=== PATIENT | male | born 1990 | race Caucasian/White ===

== ENCOUNTER 2017-04-15 17:23 | Emergency (ER) | payer SELFPAY ==
[~2017-04-15] VITALS: Ht 190.5 cm; Wt 89.2 kg
[~2017-04-15 17:23] MED LIST: Z.0.NO CURRENT MEDS
[2017-04-15 17:38] VITALS: BP 140/75; PULSE 81; RESP 18; TEMP 97.7; O2SAT 100
[2017-04-15] MEDS ORDERED: oxyCODONE/ACETAMINOPHEN 5 MG/325 MG TAB PO ONE (18:00)
[2017-04-15] MEDS ORDERED: TETANUS/DIPHTHERIA TOXOID ADULT 0.5 ML VIAL IM ONE (18:00)
--- NOTE | 2017-04-15 18:02 | PD ---
HPI Chief Complaint: Musculoskeletal Complaint Time Seen by Provider: 17:48 Travel History International Travel<30 days: No Contact w/Intl Traveler<30days: No Traveled to known affect area: No History of Present Illness HPI Patient is a 26-year-old male who presents to emergency room after he fell off a ladder today. Reports that after he fell off the ladder, he landed onto his buttochs and right wrist. Patient denies any trauma to his head or neck, denies any loss of consciousness. Patient is not on any anticoagulants. Patient at this time complains of no headache or neck pain, patient with no back pain, patient complains of pains to his right wrist, right elbow, left wrist. Patient reports that his tetanus is not up-to-date. Patient with no chest pain or shortness of breath. Patient with no abdominal pain, nausea or vomiting. PFSH Past Medical History Medical History: Denies Significant Hx Past Surgical History Surgical History: No Previous Surgery Social History Alcohol Use: No Tobacco Use: Yes (09/16 ppd) Substance Use: No Allergies-Medications (Allergen,Severity, Reaction): Coded Allergies: No Known Allergies (Unverified , 04/15/17) Reported Meds & Prescriptions Reported Meds & Active Scripts Active Ibuprofen 600 Mg Tab 600 Mg PO Q6H PRN Percocet (Oxycodone-Acetaminophen) 5-325 mg Tab 1 Tab PO Q6H PRN Review of Systems General / Constitutional: No: Fever Eyes: No: Visual changes HENT: No: Headaches Cardiovascular: No: Chest Pain or Discomfort Respiratory: No: Shortness of Breath Gastrointestinal: No: Abdominal Pain Genitourinary: No: Dysuria Musculoskeletal: Positive: Pain (left wrist, right wrist, right elbow) Skin: No Rash Neurologic: No: Weakness Psychiatric: No: Depression Endocrine: No: Polydipsia Hematologic/Lymphatic: No: Easy Bruising Physical Exam Narrative GENERAL: mild distress SKIN: Focused skin assessment warm/dry. HEAD: Atraumatic. Normocephalic. EYES: Pupils equal and round. No scleral icterus. No injection or drainage. ENT: No nasal bleeding or discharge. Mucous membranes pink and moist. NECK: Trachea midline. No JVD. CARDIOVASCULAR: Regular rate and rhythm. No murmur appreciated. RESPIRATORY: No accessory muscle use. Clear to auscultation. Breath sounds equal bilaterally. GASTROINTESTINAL: Abdomen soft, non-tender, nondistended. Hepatic and splenic margins not palpable. MUSCULOSKELETAL: No obvious deformities. No clubbing. No cyanosis. No edema. Patient with no midline tenderness to cervical, thoracic or lumbar spine LUE: patient with mild pain with ROM to left wrist, no obvious deformities, pulses intact, neurovascular intact, patient with skin tears to his wrist RUE: Patient with mild pain with range of motion of right shoulder, right elbow and right wrist, there are no obvious open deformities, pulses intact, neurovascular intact. Patient with good range of motion to all fingers. NEUROLOGICAL: Awake and alert. No obvious cranial nerve deficits. Motor grossly within normal limits. Normal speech. PSYCHIATRIC: Appropriate mood and affect; insight and judgment normal. Data Data Last Documented VS Vital Signs Date Time Temp Pulse Resp B/P Pulse Ox O2 Delivery O2 Flow Rate FiO2 04/15/17 19:10 66 17 131/65 100 Room Air 04/15/17 17:38 97.7 Orders Oxycodone-Acetamin 5-325 Mg (Percocet (04/15/17 18:00) Wrist, Complete ([id number]) (04/15/17 ) Wrist, Complete ([id number]) (04/15/17 ) Elbow, Complete (4 Vws) (04/15/17 ) Tetanus/Diphtheria Tox Adult (Tetanus/Di (04/15/17 18:00) Shoulder, Complete (>2vws) (04/15/17 ) Splint Or Brace Apply/Monitor (04/15/17 19:30) Splint Or Brace Apply/Monitor (04/15/17 19:42) MDM Medical Decision Making Medical Screen Exam Complete: Yes Emergency Medical Condition: Yes Interpretation(s) Vital Signs Date Time Temp Pulse Resp B/P Pulse Ox O2 Delivery O2 Flow Rate FiO2 04/15/17 17:38 97.7 81 18 140/75 100 Differential Diagnosis Differential includes shoulder fracture, wrist sprain, wrist fracture, elbow fracture/sprain Narrative Course Patient is a 26-year-old male who presents to emergency room with complaints of right shoulder, right elbow and right wrist and left wrist pain after he fell off a ladder. Patient with no trauma to his head or neck, patient with no midline tenderness to his CT, T or L-spine. Patient ambulating in the emergency with normal gait. Plan to obtain x-rays of his right elbow, shoulder , wrists b/l. Patient with no open deformities, no neurovascular compromise Last Impressions Shoulder X-Ray 04/15/17 0000 Signed Impressions: Service Date/Time: Saturday, April 15, 2017 18:22 - CONCLUSION: No evidence of fracture or dislocation. Farzad Banks MD Left wrist: patient with nondisplaced fracture of scaphoid - plan to place patient in thumb spica. Patient also with a mildly indurated fracture of the physis of the radial head. - will place patient in sugar tong and posterior elbow splint Patient will follow up with orthopedic surgery and will return to ER as needed Last Impressions Wrist X-Ray 04/15/17 0000 Signed Impressions: Service Date/Time: Saturday, April 15, 2017 18:38 - CONCLUSION: No evidence of recent bony injury. Farzad Banks MD Wrist X-Ray 04/15/17 0000 Signed Impressions: Service Date/Time: Saturday, April 15, 2017 18:43 - CONCLUSION: Nondisplaced fracture of the scaphoid. Farzad Banks MD Shoulder X-Ray 04/15/17 0000 Signed Impressions: Service Date/Time: Saturday, April 15, 2017 18:22 - CONCLUSION: No evidence of fracture or dislocation. Farzad Banks MD Elbow X-Ray 04/15/17 0000 Signed Impressions: Service Date/Time: Saturday, April 15, 2017 18:46 - CONCLUSION: Radial head fracture. Farzad Banks MD copies of patient studies were given to him at discharge Diagnosis Primary Impression: Scaphoid fracture, wrist, closed Qualified Code: S62.002A - Closed nondisplaced fracture of scaphoid of left wrist, unspecified portion of scaphoid, initial encounter Additional Impression: Radial head fracture, closed Qualified Code: S52.124A - Closed nondisplaced fracture of head of right radius, initial encounter Referrals: Humberto Jason MD Patient Instructions: Narcotic given in the ED, General Instructions Departure Forms: Tests/Procedures, Work Release Enter return to work date: May 06, 2017 Special Instructions: to heavy lifting until cleared by orthopedic surgery Additional Instructions: Please provide patient with a copy of his studies at discharge Please follow up with orthopedic surgery as soon as possible, call first thing in the morning for earliest follow up appointment Please place ice onto wrist and elbow Do not drive or operate heavy machinery while taking narcotic medications Return to ER as needed Med/Other Pt SpecificInfo: Prescription(s) given Scripts Ibuprofen 600 Mg Cad601 Mg PO Q6H PRN (Pain/Inflammation) #40 TAB Ref 0 Prov:Cheryl Cobian DO 04/15/17 Oxycodone-Acetaminophen (Percocet)5-325 mg Tab1 Tab PO Q6H PRN (PAIN) #12 TAB Ref 0 Prov:Cheryl Cobian DO 04/15/17 Disposition: 01 DISCHARGE HOME Condition: Stable Cheryl Cobian DO Apr 15, 2017 18:01
[2017-04-15 19:10] VITALS: BP 131/65; PULSE 66; RESP 17; O2SAT 100
--- NOTE | 2017-04-15 19:25 | RADRPT ---
EXAM DATE/TIME: 04/15/2017 18:22 [facility] COMPARISON: No previous studies available for comparison. INDICATIONS : Right shoulder pain after falling off ladder. MEDICAL HISTORY : None. SURGICAL HISTORY : None. ENCOUNTER: Initial ACUITY: 1 day PAIN SCORE: 3/10 LOCATION: Right Shoulder FINDINGS: Multiple view examination of the right shoulder demonstrates no evidence of fracture or dislocation. The glenohumeral and acromioclavicular joints are maintained. The visualized right upper ribs are i ntact. There is normal range of motion between internal and external rotation. Bony mineralization is normal. CONCLUSION: No evidence of fracture or dislocation. Farzad Banks MD on April 15, 2017 at 19:23 Board Certified Radiologist. This report was verified electronically.
--- NOTE | 2017-04-15 19:25 | RADRPT ---
EXAM DATE/TIME: 04/15/2017 18:38 [facility] COMPARISON: No previous studies available for comparison. INDICATIONS : Right wrist pain after falling off ladder. MEDICAL HISTORY : None. SURGICAL HISTORY : None. ENCOUNTER: Initial ACUITY: 1 day PAIN SCORE: 6/10 LOCATION: Right Entire wrist FINDINGS: Three view examination of the right wrist demonstrates no soft tissue swelling, dislocation, or fract ure. The carpal bones are in normal alignment. The joint spaces are maintained. Bony mineralizatio n is normal. CONCLUSION: No evidence of recent bony injury. Farzad Banks MD on April 15, 2017 at 19:23 Board Certified Radiologist. This report was verified electronically.
--- NOTE | 2017-04-15 19:27 | RADRPT ---
EXAM DATE/TIME: 04/15/2017 18:43 [facility] COMPARISON: WRIST RIGHT COMPLETE ([id number]), April 15, 2017, 18:38. INDICATIONS : Left wrist pain after falling off ladder. MEDICAL HISTORY : None. SURGICAL HISTORY : None. ENCOUNTER: Initial ACUITY: 1 day PAIN SCORE: 4/10 LOCATION: Left Entire wrist FINDINGS: Abnormal. There is a nondisplaced fracture through the distal neck of the scaphoid with at least 2 f racture lucencies seen. The carpus is in normal alignment. No evidence of deep soft tissue swelling and no radiopaque foreign bodies seen. CONCLUSION: Nondisplaced fracture of the scaphoid. Farzad Banks MD on April 15, 2017 at 19:24 Board Certified Radiologist. This report was verified electronically.
--- NOTE | 2017-04-15 19:28 | RADRPT ---
EXAM DATE/TIME: 04/15/2017 18:46 [facility] COMPARISON: No previous studies available for comparison. INDICATIONS : Right elbow pain after falling off ladder. MEDICAL HISTORY : None. SURGICAL HISTORY : None. ENCOUNTER: Initial ACUITY: 1 day PAIN SCORE: 9/10 LOCATION: Right Posterior elbow. FINDINGS: Normal. There is a mildly angulated fracture of the metaphysis of the radial head. No extension to the articular surface. The distal humerus and proximal ulna are intact. There is evidence of elbow effusion with displacement of the anterior fat-pad and visualization of the posterior fat-pad. CONCLUSION: Radial head fracture. Farzad Banks MD on April 15, 2017 at 19:25 Board Certified Radiologist. This report was verified electronically.
[2017-04-15] MEDS ORDERED: PERC5TAB12 PO (19:35)
[2017-04-15] MEDS ORDERED: IBUP-232 PO (19:37)
[2017-04-15 19:51] VITALS: BP 137/77; TEMP 98.5
[2017-04-15] MEDS ORDERED: IBUPROFEN 600 MG TAB PO ONE (20:00)
== END 2017-04-15 20:17 | disposition home or self-care (01) ==
LOC: PHED 17:23
DX: S62.002A Unspecified fracture of navicular [scaphoid] bone of left wrist, initial encounter for closed fracture (principal); S52.124A Nondisplaced fracture of head of right radius, initial encounter for closed fracture; W11.XXXA Fall on and from ladder, initial encounter; F17.210 Nicotine dependence, cigarettes, uncomplicated; Z23 Encounter for immunization
CPT/HCPCS: 29105; 73030; 73080; 73110; 90471; 90714; 99283; L3808